=== PATIENT | female | born 1995 ===

== ENCOUNTER 2016-11-21 11:20 | Emergency (ER) | payer OTHER ==
[2016-11-21] MEDS ORDERED: Sodium Chloride 0.9% 1,000 ML IV STA (11:42)
--- NOTE | 2016-11-21 11:49 | ED PDOC ---
HPI: Abdomen Time Seen by Provider: 11/21/16 11:43 Chief Complaint (Nursing): Abdominal Pain Chief Complaint (Provider): ABDOMINAL PAIN History Per: Patient (21 Y/O FEMALE 14 WEEK GESTATION HERE WITH VOMITING TODAY MULTIPLE EPISODES 8 EPISODES. DENIES ANY DIARRHEA/FEVERS/CHILLS. NO H/O ABDOMINAL SURGERIES. HAS APPT WITH DR. VILLEGAS ON THURSDAY. HAS NOT HAD US OF YET. PATIENT HAS NOT TAKEN VITAMINS OF YET.) Past Medical History Reviewed: Historical Data, Nursing Documentation, Vital Signs Vital Signs: Last Vital Signs Temp 98.4 F 11/21/16 15:24 Pulse 71 11/21/16 15:24 Resp 17 11/21/16 15:24 BP 96/61 L 11/21/16 15:24 Pulse Ox 99 11/21/16 15:24 - Family History Family History: States: No Known Family Hx - Home Medications Home Medications: Ambulatory Orders Medication Instructions Recorded Ondansetron ODT [Zofran ODT] 4 mg PO Q8 PRN #15 odt 11/21/16 Vit Calc,Iron,Folic 1 each PO DAILY #14 tablet 11/21/16 [ Vitamins] - Allergies Allergies/Adverse Reactions: Allergies Allergy/AdvReac Type Severity Reaction Status Date / Time No Known Allergies Allergy Verified 11/21/16 11:33 Review of Systems ROS Statement: Except As Marked, All Systems Reviewed And Found Negative Gastrointestinal: Positive for: Vomiting Physical Exam - Reviewed Nursing Documentation Reviewed: Yes Vital Signs Reviewed: Yes - Physical Exam Appears: Positive for: Well, Non-toxic, No Acute Distress Head Exam: Positive for: ATRAUMATIC, NORMAL INSPECTION, NORMOCEPHALIC Skin: Positive for: Normal Color, Warm, DRY Eye Exam: Positive for: EOMI, Normal appearance, PERRL ENT: Positive for: Normal ENT Inspection Neck: Positive for: Normal, Painless ROM Cardiovascular/Chest: Positive for: Regular Rate, Rhythm Respiratory: Positive for: CNT, Normal Breath Sounds Gastrointestinal/Abdominal: Positive for: Normal Exam, Bowel Sounds, Soft Back: Positive for: Normal Inspection Extremity: Positive for: Normal ROM Neurologic/Psych: Positive for: Alert, Oriented - Laboratory Results Result Diagrams: 11/21/16 12:50 11/21/16 12:50 Urine POC: Positive Urine dip results: Positive for: Ketones. Negative for: Leukocyte Esterase, Blood, Nitrate, Glucose, Bilirubin - ECG O2 Sat by Pulse Oximetry: 98 - Progress ED Course And Treament: REGLAN 10 MG I VX 1 DOSE NS 1 LITER WIDE OPEN D5 1/2 NS 2ND LITER US PELVIC: 15 WEEKS 4 DAY; FHR 161 Disposition - Clinical Impression Clinical Impression: Hyperemesis gravidarum - Patient ED Disposition Is Patient to be Admitted: No - Disposition Disposition: Routine/Home Disposition Time: 14:52 Condition: FAIR Prescriptions: Ondansetron ODT [Zofran ODT] 4 mg PO Q8 PRN #15 odt PRN Reason: Nausea/Vomiting Vit Calc,Iron,Folic [ Vitamins] 1 each PO DAILY #14 tablet Instructions: Hyperemesis Gravidarum (ED)
[2016-11-21 12:32] LABS: SQUAMOUS EPITHIAL 3 /hpf (0-5); URINE BACTERIA RARE (<OCC); URINE BILIRUBIN NEGATIVE (NEGATIVE); URINE BLOOD NEGATIVE (NEGATIVE); URINE CALCIUM OXALATE CRYSTALS OCC /hpf (<OCC); URINE CLARITY SLIGHTY-CLOUDY (Clear); URINE COLOR YELLOW (YELLOW); URINE GLUCOSE (UA) NEG (Normal); URINE LEUKOCYTE ESTERASE NEG Leu/uL (Negative); URINE NITRATE NEGATIVE (NEGATIVE); URINE PROTEIN 30 mg/dL (NEGATIVE); URINE UROBILINOGEN 0.2-1.0 mg/dL (0.2-1.0)
[2016-11-21] MEDS ORDERED: Dextrose 5%/0.45% NS 1,000 ML IV SCH (13:00)
[2016-11-21 13:20] LABS: BASO % 0.3 % (0.0-2.0); EOS % 0.1 % (0.0-4.0); HEMOGLOBIN 13.1 g/dL (12.0-16.0); LYMPH # 1.4 K/uL (1.0-4.3); LYMPH % 12.9 % (20.0-40.0); MEAN CELL VOLUME 89.7 fl (81.0-99.0); MEAN CORPUSCULAR HEMOGLOBIN 31.5 pg (27.0-31.0); MEAN CORPUSCULAR HGB CONC 35.1 g/dL (33.0-37.0); MEAN PLATELET VOLUME 8.1 fl (7.2-11.7); MONO # 0.6 K/uL (0.0-0.8); MONO % 5.7 % (0.0-10.0); NRBC % 0.1 % (0.0-0.0); RBC 4.15 Mil/uL (3.80-5.20); RED CELL DISTRIBUTION WIDTH 12.9 % (11.5-14.5); WHITE BLOOD COUNT 11.1 K/uL (4.8-10.8)
[2016-11-21 13:30] LABS: ALB/GLOB RATIO 1.6 (1.0-2.1); ALBUMIN 4.8 g/dL (3.5-5.0); ALT/SGPT 55 U/L (9-52); AST/SGOT 38 U/L (14-36); BLOOD UREA NITROGEN 11 mg/dl (7-17); CALCIUM 9.6 mg/dL (8.4-10.2); GFR AFRICAN-AMERICAN > 60; GFR NON-AFRICAN AMERICAN > 60
--- NOTE | 2016-11-21 15:03 | US ---
PROCEDURE: OB Pelvic Ultrasound HISTORY: ABDOMINAL PAIN COMPARISON: None available. FINDINGS: UTERUS: Gestational sac: Single intrauterine gestation. Heart rate: 161 bpm. BPD: 3.10 cm corresponding to 15 weeks and 5 days of gestational age. HC: 10.93 cm corresponding to 15 weeks and 2 days of gestational age. AC: 9.56 cm corresponding to 15 weeks and 5 days of gestational age. FL: 1.78 cm corresponding to 15 weeks and 2 days of gestational age. age (Ultrasound estimated): 15 weeks and 4 days Sharon-gestational hemorrhage: None. Date of delivery (Ultrasound estimated) : 05/11/2017 There is a single live intrauterine fetus in variable presentation. The placenta is anterior and along the right lateral wall. CERVIX: Long and closed. No cervical abnormality seen. RIGHT OVARY: Not visualized. LEFT OVARY: Not visualized. FREE FLUID: None. OTHER FINDINGS: None. IMPRESSION: Single live intrauterine fetus with mean gestational age of 15 weeks and 4 days. The estimated date of delivery by ultrasound is 05/11/2017. The ultrasound dates correspond with the clinical dates.
[2016-11-21 15:25] VITALS: BP 96/61; PULSE 71; RESP 17; TEMP 98.4
[2016-11-21 15:28] VITALS: O2SAT 98
== END 2016-11-21 15:45 | disposition home or self-care (01) ==
LOC: H.ER 11:20
DX: O21.0 Mild hyperemesis gravidarum (principal); Z3A.15 15 weeks gestation of pregnancy

== ENCOUNTER 2017-05-21 12:57 | Inpatient (IN) | payer MEDICAID, OTHER ==
[2017-05-21 13:43] VITALS: BMI 29.0
[2017-05-21] MEDS ORDERED: Lactated Ringer's 1,000 ML IV ONE (14:00)
[2017-05-21 14:35] LABS: BASO % 0.2 % (0.0-2.0); EOS # 0.1 K/uL (0.0-0.7); EOS % 0.7 % (0.0-4.0); HEMOGLOBIN 11.2 g/dL (12.0-16.0); LYMPH # 1.9 K/uL (1.0-4.3); LYMPH % 15.6 % (20.0-40.0); MEAN CELL VOLUME 89.1 fl (81.0-99.0); MEAN CORPUSCULAR HGB CONC 33.7 g/dL (33.0-37.0); MEAN PLATELET VOLUME 8.2 fl (7.2-11.7); MONO # 0.9 K/uL (0.0-0.8); MONO % 7.7 % (0.0-10.0); NEUT # 9.2 K/uL (1.8-7.0); NEUT % 75.8 % (50.0-75.0); NRBC % 0.1 % (0.0-0.0); RBC 3.73 Mil/uL (3.80-5.20); RED CELL DISTRIBUTION WIDTH 14.7 % (11.5-14.5); WHITE BLOOD COUNT 12.2 K/uL (4.8-10.8)
[2017-05-21] MEDS ORDERED: Oxytocin 30 UNITS in Sodium Chloride 0.9% 500 ML IV SCH (14:45)
[2017-05-21] MEDS ORDERED: Lactated Ringer's 1,000 ML IV SCH (15:45)
[2017-05-21] MEDS ORDERED: Fentanyl/Bupivacaine HCl 250 ML EPI ONE (16:42)
[2017-05-21] MEDS ORDERED: Lidocaine 1% Inj (20ml) ONE (20:28)
--- NOTE | 2017-05-22 02:47 | OBDS ---
DELIVERY PERSONNEL Delivery Doctor: Rodriguez Bergman MD Furnace Hand: Jessie Sauceda RN Anesthesiologist: Yani Juarez MD MATERNAL INFORMATION Delivery Anesthesia: Epidural Medications in Delivery: 30 units pitocin in 500 ml lr Estimated Blood Loss (ml): 300 Placenta Cultured: No Maternal Complications: None Provider Comments: Pt delivered viable infant male with Apgars 9/9 via MAIKOL position. Placenta delivered spontaneousl y. Lacerations repaired, as above. Uterus firm and appropriately hemostatic following delivery. Pt tolerated delivery and repair well. No complications. EBL 300cc LABOR SUMMARY EDC: 05/16/2017 00:00 No. Babies in Womb: 1 Attempted: No Labor Anesthesia: Epidural LABOR INFORMATION Reason for Induction: Postterm Onset of Labor: 05/21/2017 15:30 Complete Dilatation: 05/21/2017 23:37 Group B Beta Strep: Negative Antibiotics # of Doses: 0 Antibiotics Time of Last Dose: 0 Steroids Given: None Reason Steroids Not Administered: Not Applicable MEMBRANES Membranes Rupture Method: Artificial Rupture of Membranes: 05/21/2017 21:45 Length of Rupture (hrs): 4.08 Amniotic Fluid Color: Clear Amniotic Fluid Amount: Moderate Amniotic Fluid Odor: Normal STAGES OF LABOR Stage 1 hrs: 8 Stage 1 min: 7 Stage 2 hrs: 2 Stage 2 min: 13 Stage 3 hrs: 0 Stage 3 min: 3 Total Time in Labor hrs: 10 Total Time in Labor min: 23 VAGINAL DELIVERY Episiotomy: None Laceration Extension: Second Degree Laceration Type: Vaginal Other Laceration: first degree periurethral Laceration Repair: Yes Initial Vag Sponge Count: 20 Final Vag Sponge Count: 20 Initial Vag Sharps Count: 3 Final Vag Sharps Count: 3 Sponge Count Correct: Yes Sharps Count Correct: Yes Count Comment: count correct BABY A INFORMATION Infant Delivery Date/Time: 05/22/2017 01:50 Method of Delivery: Vaginal Born in Route : Yes : N/A Forceps: N/A Vacuum Extraction: N/A Shoulder Dystocia : No SHOULDER DYSTOCIA BABY A Infant Delivery Date/Time: 05/22/2017 01:50 PRESENTATION/POSITION BABY A Presentation: Cephalic PLACENTA INFORMATION BABY A Placenta Delivery Time : 05/22/2017 01:53 Placenta Method of Delivery: Spontaneous Placenta Status: Delivered SCORES BABY A Heart Rate 1 min: >100 bpm Resp Effort 1 min: Good Cry Reflex Irritability 1 min: Cough or Sneeze or Pulls Away Muscle Tone 1 min: Active Motion Color 1 min: Body [place], Extremities Blue Resuscitation Effort 1 min: Tactile Stimulation SCORE 1 MIN: 9 Heart Rate 5 min: >100 bpm Resp Effort 5 min: Good Cry Reflex Irritability 5 min: Cough or Sneeze or Pulls Away Muscle Tone 5 min: Active Motion Color 5 min: Body [place], Extremities Blue Resuscitation Effort 5 min: N/A SCORE 5 MIN: 9 INFANT INFORMATION BABY A Gestational Age at Delivery: 40.5 Gestational Status: Post-term Outcome : Liveborn Condition : Stable Infant Sex: Male IDENTIFICATION/MEDS BABY A ID Band Number: [id number] ID Band Location: Left Leg; Left Arm WEIGHT/LENGTH BABY A Birthweight (gms): 3885 Weight (lb): 8 Weight (oz): 9 CORD INFORMATION BABY A No. Cord Vessels: 3 Nuchal Cord : N/A Nuchal Cord Other: n/a True Knot: n/a Infant Cord pH Baby Arterial: n/a Infant Cord pH Baby Venous: n/a Cord Blood Taken: Yes Banking/Donate Info: n/a Infant Suction: Mouth; Nose; Pharynx ASSESSMENT BABY A Complications: None Physical Findings at Delivery: Caput Succedaneum; [place] Respirations: Appears Normal Lunch Truck Driver/ALS Called : No Infant Care By: Vamsi Transferred To: Remains with Mother
[2017-05-22] MEDS ORDERED: Oxycodone/Acetaminophen 5/325 mg Tab PO PRN ×2 (03:17→03:29)
[2017-05-22] MEDS ORDERED: Oxytocin 30 UNITS in Sodium Chloride 0.9% 500 ML IV ONE (03:29)
[2017-05-22 12:06] LABS: HEMOGLOBIN 9.8 g/dL (12.0-16.0); MEAN CELL VOLUME 89.2 fl (81.0-99.0); MEAN CORPUSCULAR HEMOGLOBIN 30.1 pg (27.0-31.0); MEAN CORPUSCULAR HGB CONC 33.8 g/dL (33.0-37.0); RBC 3.26 Mil/uL (3.80-5.20); RED CELL DISTRIBUTION WIDTH 14.9 % (11.5-14.5); WHITE BLOOD COUNT 17.6 K/uL (4.8-10.8)
--- NOTE | 2017-05-23 12:40 | OBPPN ---
Datetime: 05/23/2017 12:20 PP Pain Prov: Within normal limits PP Nausea Prov: Denies PP Flatus Prov: Yes PP BM Prov: No PP Breasts Prov: Normal PP Heart Prov: Normal PP Lungs Prov: Normal PP Abdomen/Uterus Prov: Normal PP Lochia Prov: Normal PP Vulva/Perineum Prov: Normal PP CVA Tenderness Prov: Normal PP Extremities Prov: Normal PP Progress Prov: Normal PP Impression Prov: Normal progression PP Plan Prov: Continue present management PP Progress Note Prov: stable ppd1 continue present care IP PP Procedures: None Vital Signs Provider PP: Reviewed; Within Normal Limits
--- NOTE | 2017-05-24 11:52 | OBPPN ---
Datetime: 05/24/2017 11:49 PP Pain Prov: Within normal limits PP Nausea Prov: Denies PP Flatus Prov: Yes PP BM Prov: Yes PP Breasts Prov: Normal PP Heart Prov: Normal PP Lungs Prov: Normal PP Abdomen/Uterus Prov: Normal PP Lochia Prov: Normal PP Vulva/Perineum Prov: Normal PP CVA Tenderness Prov: Normal PP Extremities Prov: Normal PP Comments Phys Exam Prov: Uterus firm, below umbilicus No deep calf tenderness bilaterally. PP Impression Prov: Normal progression PP Plan Prov: Discharge PP Progress Note Prov: day #2 status post . Patient recovering well Discharge patient home today, follow-up in 6 weeks in office for visit Discussed plan with patient and all patient questions answered. IP PP Procedures: None Vital Signs Provider PP: Reviewed; Within Normal Limits
--- NOTE | 2017-05-24 11:52 | OBDCSUM ---
Datetime: 05/23/2017 10:20 Disch Instr Activity: Normal activity Discharge Instructions, Provider: Routine instructions given Discharge Diagnosis, Provider: Term Delivered Discharge Time: 05/24/2017 10:30 Contraception discussed, Prov: Yes Disch Activity Restrictions: No exercising; No lifting; No sexual activity; Nothing in vagina - Inte rcourse, tampons, douche
[2017-05-24 14:57] VITALS: BP 134/67; PULSE 77; RESP 20; TEMP 97.7
[2017-05-24 18:59] VITALS: O2SAT 100
== END 2017-05-24 14:10 | disposition home or self-care (01) | DRG 373 ==
LOC: H.EROB2 12:57 → H.EROB 13:41 → H.L&D 15:04 → H.OB/GYN 05-22 04:00
PROVIDERS: ADMIT Specialist; ATTEND Specialist
PROC: 10907ZC Drainage of Amniotic Fluid, Therapeutic from Products of Conception, Via Natural or Artificial Opening (ICD-10-PCS; 2017-05-21)
PROC: 4A1HXCZ Monitoring of Products of Conception, Cardiac Rate, External Approach (ICD-10-PCS; 2017-05-21)
PROC: 10E0XZZ Delivery of Products of Conception, External Approach (ICD-10-PCS; principal; 2017-05-22)
PROC: 0KQM0ZZ Repair Perineum Muscle, Open Approach (ICD-10-PCS; 2017-05-22)
DX: O48.0 Post-term pregnancy (principal); O70.1 Second degree perineal laceration during delivery; O71.82 Other specified trauma to perineum and vulva; Z37.0 Single live birth; Z3A.40 40 weeks gestation of pregnancy